=== PATIENT | female | born 1995 | race Caucasian/White ===

== ENCOUNTER 2018-06-04 14:04 | Outpatient (REF) | payer BC, SELFPAY ==
[2018-06-04 15:48] LABS: HCT 43.4 % (36.0-46.0); HGB 14.5 g/dL (12.0-15.5); Mean Corp. HGB Concentration 33.4 g/dL (32.0-36.0); Mean Corpuscular Hemoglobin 31.5 pg (27.0-33.0); Mean Corpuscular Volume 94.3 fL (80-95); Mean Platelet Volume 11.2 fL (8.0-11.0); Platelet Count 233 x1000/uL (130-400); RBC Distribution Width 12.6 % (11.7-14.6); White Blood Cell Count 7.83 k/cumm (4.4-10.8)
[2018-06-04 16:52] LABS: Anion Gap 11.6 mmol/L (3-11); BUN 11 mg/dL (7-18); CO2 25.4 mmol/L (21.0-32.0); CREATININE 0.85 mg/dL (0.55-1.02); Calcium 9.1 mg/dL (8.5-10.1); Chloride 106 mmol/L (98-107); Glucose 96 mg/dL (70-100); Potassium 4.2 mmol/L (3.5-5.1); Sodium 143 mmol/L (136-145); TSH (W/Ref FT4) 2.09 uIU/mL (0.358-3.74)
[2018-06-05 17:15] LABS: Iron 133 ug/dL (50-175); Total Iron Binding Capacity 295 ug/dL (250-450)
== END 2018-06-04 14:24 ==
LOC: NCHCN 14:04
PROVIDERS: PCP Pediatrics; Visit Provider Nurse Practitioner Family
DX: R53.83 Other fatigue (principal)
CPT/HCPCS: 80048; 85027; 83540; 83550; 84443

== ENCOUNTER 2018-06-10 00:37 | Outpatient (CLI) | payer BC, SELFPAY ==
--- NOTE | 2018-06-10 07:08 | DI.US_ITS ---
SYMPTOM/DIAGNOSIS: ABD PAIN, R10.9 ABDOMEN ULTRASOUND: The liver is normal in size and echogenicity. No biliary dilatation is seen. The gallbladder shows several folds. No stones or wall thickening is seen. There is no pericholecystic fluid. The spleen may be mildly enlarged at 13 cm. The kidneys, pancreas and aorta are unremarkable. There is no ascites. IMPRESSION: Borderline splenomegaly.
== END 2018-06-10 00:57 ==
PROVIDERS: PCP Nurse Practitioner Family; Visit Provider Nurse Practitioner Family
DX: R10.9 Unspecified abdominal pain (principal); R16.1 Splenomegaly, not elsewhere classified
CPT/HCPCS: 76700

== ENCOUNTER 2018-07-08 01:21 | Outpatient (CLI) | payer BC, SELFPAY ==
--- NOTE | 2018-07-08 12:57 | DI.US_ITS ---
SYMPTOM/DIAGNOSIS: H/O OVARIAN CYST, F/U, Z87.42, BILAT LOWER QUADRANT PAIN, SOME SPOTTING PELVIC ULTRASOUND: Transabdominal and transvaginal exams were performed. The uterus measures 7.2 by 3.5 by 4.4 cm. No fibroids are seen. The endometrial stripe measures 4 mm. in thickness. No ovarian cysts or masses are seen. There is no evidence of ovarian torsion. No free fluid or hydronephrosis is seen. IMPRESSION: Pelvic ultrasound is within normal limits.
== END 2018-07-08 01:41 ==
PROVIDERS: PCP Nurse Practitioner Family; Visit Provider Nurse Practitioner Family
DX: R10.31 Right lower quadrant pain (principal); R10.32 Left lower quadrant pain; Z87.42 Personal history of other diseases of the female genital tract
CPT/HCPCS: 76830; 76856

== ENCOUNTER 2018-07-29 12:01 | Outpatient (REF) | payer BC, SELFPAY ==
--- NOTE | 2018-07-29 09:51 | SKI_PTH ---
PATIENT: Kiersten Garland LOC: [facility] U#:[id number] AGE/SX: 23/F ROOM: RE07/29/[address]: Raheel Oliva DO : 1995 BED: DIS: 07/29/2018 SPEC #: [id number] RECD: 07/30/18 11:29 STATUS: ETELVINA RELynn #: [id number] YAMIL: 07/29/18 09:[address]: Raheel Oliva DEPT: Surgical Specimen RECD BY: Sofi Silver ENTERED: 07/30/18 11:30 SP TYPE: МАРИЯ SOUTH DR: Zo Sheridan Tissues: 1 - SKIN BIOPSY(SHAVE/PUNCH) Procedures: SKIN LEVEL 4 Comments: [id number]
== END 2018-07-29 12:21 ==
LOC: LBN 12:01
PROVIDERS: PCP Nurse Practitioner Family; Visit Provider Otolaryngology Otolaryngology/Facial Plastic Surgery
DX: D22.5 Melanocytic nevi of trunk (principal)
CPT/HCPCS: 88305

== ENCOUNTER 2018-11-13 10:06 | Outpatient (REF) | payer BC, SELFPAY ==
--- NOTE | 2018-11-13 08:40 | PAPFT_PTH ---
PATIENT: Kiersten Garland [id number] AGE/SX: 23/F ROOM: RE11/13/[address]: Zo Sheridan : 1995 BED: DIS: 11/13/2018 SPEC #: [id number] RECD: 11/13/18 12:58 STATUS: ETELVINA RELynn #: [id number] YAMIL: 11/13/18 08:[address]: Zo Sheridan DEPT: [facility] Cytology RECD BY: Sofi Silver Tissues: 1 - CX/ENDOCX FOR PAP SMEARS Procedures: PAP THIN PREP/[facility] Screening Comments: [id number] (CHLAMYDIA/GC)
[2018-11-14 13:12] LABS: Chlamydia Result Negative; GC Result Negative; Specimen Description SEE COMMENTS
== END 2018-11-13 10:26 ==
LOC: NCHCN 10:06
PROVIDERS: PCP Nurse Practitioner Family; Visit Provider Nurse Practitioner Family
DX: N88.8 Other specified noninflammatory disorders of cervix uteri (principal); Z11.3 Encounter for screening for infections with a predominantly sexual mode of transmission; Z12.4 Encounter for screening for malignant neoplasm of cervix; Z00.00 Encounter for general adult medical examination without abnormal findings; Z01.419 Encounter for gynecological examination (general) (routine) without abnormal findings
CPT/HCPCS: 87491; 87591; 88142; 87480; 87510; 87660

== ENCOUNTER 2019-05-01 09:54 | Outpatient (REF) | payer BC, SELFPAY ==
[2019-05-01 12:43] LABS: Calculated LDL 90 mg/dL; Cholesterol 192 mg/dL (<200); HDL Cholesterol 76 mg/dL (40-60); Triglyceride 132 mg/dL (<150)
== END 2019-05-01 10:14 ==
LOC: NCHCN 09:54
PROVIDERS: PCP Nurse Practitioner Family; Visit Provider Nurse Practitioner Family
DX: Z13.220 Encounter for screening for lipoid disorders (principal)
CPT/HCPCS: 80061

== ENCOUNTER 2019-07-16 17:55 | Outpatient (REF) | payer BC, SELFPAY ==
[2019-07-18 16:33] LABS: Chlamydia Result Negative (Negative); GC Result Negative (Negative)
== END 2019-07-16 18:15 ==
LOC: NCHCN 17:55
PROVIDERS: PCP Nurse Practitioner Family; Visit Provider Nurse Practitioner Family
DX: Z11.3 Encounter for screening for infections with a predominantly sexual mode of transmission (principal); N89.8 Other specified noninflammatory disorders of vagina
CPT/HCPCS: 87491; 87591; 87480; 87510; 87660

== ENCOUNTER 2019-07-23 02:17 | Outpatient (CLI) | payer BC, SELFPAY ==
--- NOTE | 2019-07-23 | DI.US_ITS ---
EXAM: US BREAST RT LIMITED CLINICAL HISTORY: LUMP ON INFERIOR BORDER AT MIDCLAVICULAR LINE, N63.0 TECHNIQUE: Ultrasound performed using standard protocol. COMPARISON: US PELVIS TRANSVAGINAL from 07/08/2018 FINDINGS: Breast ultrasound was performed to evaluate reported questionable palpable abnormality of the inferio r portion of the right breast. Ultrasound shows no evidence of a mass or cyst. IMPRESSION: Negative breast ultrasound. Please note that the negative examination does not absolutely exclude th e possibility of malignancy and should not preclude biopsy of any clinically suspicious palpable ryan st mass. DATA REPOSITORY:
== END 2019-07-23 02:37 ==
PROVIDERS: PCP Nurse Practitioner Family; Visit Provider Nurse Practitioner Family
DX: N63.11 Unspecified lump in the right breast, upper outer quadrant (principal)
CPT/HCPCS: 76642

== ENCOUNTER 2020-01-16 12:06 | Outpatient (REF) | payer BC, SELFPAY ==
--- NOTE | 2020-01-16 08:40 | PAPFT_PTH ---
PATIENT: Kiersten Garland LOC: [facility] U#:[id number] AGE/SX: 24/F ROOM: RE01/16/[address]: Zo Sheridan : 1995 BED: DIS: 01/16/2020 SPEC #: [id number] RECD: 01/19/20 12:54 STATUS: ETELVINA REQ #: [id number] YAMIL: 01/16/20 08:[address]: Zo Sheridan DEPT: [facility] Cytology RECD BY: Sofi Silver Tissues: 1 - CX/ENDOCX FOR PAP SMEARS Procedures: PAP THIN PREP/[facility] Screening Comments: [id number] (CHLAMYDIA/GC)
[2020-01-20 14:50] LABS: Chlamydia Result Negative (Negative); GC Result Negative (Negative)
== END 2020-01-16 12:26 ==
LOC: NCHCN 12:06
PROVIDERS: PCP Nurse Practitioner Family; Visit Provider Nurse Practitioner Family
DX: Z00.00 Encounter for general adult medical examination without abnormal findings (principal); Z11.3 Encounter for screening for infections with a predominantly sexual mode of transmission; Z12.4 Encounter for screening for malignant neoplasm of cervix; Z01.419 Encounter for gynecological examination (general) (routine) without abnormal findings
CPT/HCPCS: 87491; 87591; 88142

== ENCOUNTER 2023-02-27 13:00 | Outpatient (REF) | payer BC, SELFPAY ==
--- NOTE | 2023-02-27 07:45 | PAPFT_PTH ---
PATIENT: Kiersten Garland LOC: [facility]#:[id number] AGE/SX: 27/F ROOM: RE02/27/[address]: Zo Sheridan : 1995 BED: DIS: 02/27/2023 SPEC #: [id number] RECD: 02/28/23 13:08 STATUS: ETELVINA RELynn #: [id number] YAMIL: 02/27/23 07:[address]: Zo Sheridan DEPT: [facility] Cytology RECD BY: Sofi Silver Tissues: 1 - CX/ENDOCX FOR PAP SMEARS Procedures: PAP THIN PREP/[facility] Screening Comments: [id number] (CHLAMYDIA/GC)
[2023-03-01 17:24] LABS: Chlamydia Result Negative (Negative); GC Result Negative (Negative)
== END 2023-02-27 13:01 | disposition home or self-care (01) ==
LOC: NCHCN 13:00
PROVIDERS: PCP Nurse Practitioner Family; Visit Provider Nurse Practitioner Family
DX: Z12.4 Encounter for screening for malignant neoplasm of cervix (principal); Z11.3 Encounter for screening for infections with a predominantly sexual mode of transmission
CPT/HCPCS: 87491; 87591; 88142

== ENCOUNTER 2023-08-14 21:55 | Outpatient (REF) | payer BC, SELFPAY ==
[2023-08-16 09:08] LABS: Syphilis Serology (RPR) Negative (Negative)
[2023-08-16 09:51] LABS: Hepatitis C Ab w Rflx HCV PCR Negative (Negative)
[2023-08-16 10:11] LABS: HIV-1/2 Ag & Ab Screen Negative (Negative)
[2023-08-16 12:50] LABS: Chlamydia Result Negative (Negative); GC Result Negative (Negative)
== END 2023-08-14 21:56 | disposition home or self-care (01) ==
LOC: NCHCN 21:55
PROVIDERS: PCP Nurse Practitioner Family; Visit Provider Nurse Practitioner Family
DX: L29.3 Anogenital pruritus, unspecified (principal); Z11.59 Encounter for screening for other viral diseases; B37.9 Candidiasis, unspecified
CPT/HCPCS: 86803; 87389; 87491; 87591; 86592; 87480; 87510; 87660

== ENCOUNTER 2024-04-24 09:27 | Outpatient (REF) | payer BC, SELFPAY ==
[2024-04-25 10:21] LABS: Syphilis Serology (RPR) Negative (Negative)
== END 2024-04-24 09:28 | disposition home or self-care (01) ==
LOC: NCHCN 09:27
PROVIDERS: PCP Nurse Practitioner Family; Visit Provider Nurse Practitioner Family
DX: N94.9 Unspecified condition associated with female genital organs and menstrual cycle (principal)
CPT/HCPCS: 86592

== ENCOUNTER 2025-03-12 09:57 | Outpatient (REF) | payer BC, SELFPAY ==
[2025-03-12 15:07] LABS: HCT 39.3 % (36.0-46.0); HGB 13.4 g/dL (11.2-15.7); MCH 31.2 pg (27.0-33.0); MCHC 34.1 % (32.0-36.0); MCV 91 fL (80-95); MPV 10.0 fL (8.0-11.0); Platelet Count 172 10^3/uL (130-400); RBC 4.30 10^6/uL (3.93-5.22); RDW 12.9 % (11.7-14.6); RDW-SD 42.4 fL; WBC 6.23 10^3/uL (4.4-10.8)
[2025-03-12 15:26] LABS: Iron 121 ug/dL (50-170); Total Iron Binding Capacity 188 ug/dL (250-450); Transferrin Sat 64 % (15-50)
[2025-03-12 15:49] LABS: ALT 42 U/L (14-59); AST 22 U/L (15-37); Albumin 3.7 g/dL (3.4-5.0); Alkaline Phosphatase 84 U/L (46-116); Anion Gap 10.0 mmol/L (3-11); BUN 11 mg/dL (7-18); Bilirubin, Total 0.7 mg/dL (0.2-1.0); CO2 26.0 mmol/L (21.0-32.0); Calcium 8.2 mg/dL (8.5-10.1); Chloride 106 mmol/L (98-107); Glucose 90 mg/dL (74-106); Potassium 3.8 mmol/L (3.5-5.1); Sodium 142 mmol/L (136-145); TSH (W/Ref FT4) 0.92 uIU/mL (0.36-3.74); Total Protein 6.8 g/dL (6.4-8.2)
[2025-03-13 11:57] LABS: Magnesium 2.0 mg/dL (1.8-2.4); Vitamin D 25 Total 30 ng/mL (30-100)
== END 2025-03-12 09:58 | disposition home or self-care (01) ==
LOC: NCHCN 09:57
PROVIDERS: PCP Nurse Practitioner Family; Visit Provider Nurse Practitioner Family
DX: R51.9 Headache, unspecified (principal)
CPT/HCPCS: 80053; 82306; 85027; 83540; 83550; 83735; 83970; 84443